=== PATIENT | male | born 1990 ===

== ENCOUNTER 2022-01-07 08:00 | Outpatient (CLI) | payer OTHER ==
--- NOTE | 2022-01-08 07:46 | XRAY Report ---
PROCEDURE: Finger(s) LT INDICATIONS: CRUSHING INJURY TO LEFT LITTLE FINGER TECHNIQUE: AP hand, 2 views of the small finger(s) acquired. COMPARISON: None FINDINGS: Bones: No fractures or dislocations. No suspicious bony lesions. Soft tissues: No suspicious soft tissue calcifications. IMPRESSION: No evidence acute bony abnormality of the left fifth finger. Reviewed by: Kareem Wooten MD on 01/08/2022 7:44 AM PDT Approved by: Kareem Wooten MD on 01/08/2022 7:44 AM PDT Station ID: [id number]
== END 2022-01-07 23:59 | disposition home or self-care (01) ==
LOC: DI.S 08:00
PROVIDERS: ATTEND Physician Assistant
DX: S67.197A Crushing injury of left little finger, initial encounter (principal)